=== PATIENT | male | born 1985 | race Caucasian/White ===

== ENCOUNTER 2016-06-30 11:10 | Day surgery (SDC) | payer OTHER ==
[~2016-06-30] VITALS: Ht 172.7 cm; Wt 113.0 kg
[~2016-06-30 11:10] MED LIST: PANT20T PO; Sodium Chloride LOK Flush 10 mL Syringe IV PRN; fentaNYL-PF 50 mCg/mL 2 mL Inj IVPUSH PRN
[2016-06-30 11:35] VITALS: BP 124/56; PULSE 79; RESP 15; O2SAT 97
[2016-06-30 12:28] VITALS: BP 121/75; PULSE 83; RESP 14; O2SAT 94
[2016-06-30] MEDS: 0.9% Sodium Chloride 1,000 ML IV SCH ×2 (12:30→12:32)
[2016-06-30 12:39] VITALS: BP 119/77; PULSE 87; RESP 16; O2SAT 96
--- NOTE | 2016-06-30 13:57 | ENDO ---
[address] [address] ENDOSCOPY PROCEDURE PATIENT: ALIDA CHAMPAGNE : 1985 MR#: [id number] ADMIT: 06/30/2016 JOB ID: [id number] DATE: 06/30/2016 PRIMARY CARE PHYSICIAN: Nabil Darby M.D. PROCEDURE: Upper endoscopy with biopsy. INDICATIONS: The patient is a 30-year-old man who recently had abdominal pain relieved with antacid use. Workup demonstrated cholelithiasis but it seems more likely this is due to peptic ulcer disease. He had not previously undergone upper endoscopy. EQUIPMENT: GIF H 180 J. SEDATION: 1. Versed 6 mg. 2. Fentanyl 100 mcg. COMPLICATIONS: None identified. PROCEDURAL INFORMATION: The patient was brought into the endoscopy suite and placed in the left lateral decubitus position. Sedation was achieved using the above-stated medications with the addition of oxygen administered by nasal cannula. The endoscope was inserted under direct visualization through the mouth down into the oropharynx, esophagus and down into the stomach and duodenum. In the stomach he is noted to have punctate erythema in the antrum. Biopsies and cold forceps were taken. Retroflexed views were obtained in the stomach. He had a grade 3 flap valve. The scope was then slowly withdrawn. GE junction was at 40 cm. It was irregular with a single tongue of salmon-colored mucosa protruding to the esophagus. This was biopsied again with cold forceps. The scope was then slowly withdrawn. The case concluded. 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 RECOMMENDATIONS: 1. Await histopathology. 2. Continue PPI as prescribed.
--- NOTE | 2016-07-07 12:49 | PATH ---
SURGICAL PATHOLOGY Attending Physician:Vicente Hill MD CASE STATUS: Signed Out PATIENT NAME: ALIDA CHAMPAGNE PID: [id number] : 1985 DATE COLLECTED:06/30/2016 20:12 SPECIMEN: 1: Stomach, Antrum, Biopsy 2: Esophagus, Biopsy CLINICAL HISTORY: 1). ANTRUM BIOPSY (RULE OUT H.PYLORI) 2). GASTRO-ESOPHAGEAL JUNCTION BIOPSY FINAL DIAGNOSIS: 1. Antrum, Biopsy: Gastric antral-type mucosa with mild chronic active gastritis. Negative for H. pylori organisms by H&E stain. Negative for intestinal metaplasia. Negative for dysplasia and malignancy. 2. Gastroesophageal Junction, Biopsy: Squamous mucosa with no diagnostic abnormality. No increased inflammatory cells identified. Negative for dysplasia and malignancy. No columnar epithelium identified for evaluation. ICD10: K21.0 GROSS DESCRIPTION: The specimen is received in two formalin filled containers labeled with the patient's name. 1). The specimen is sublabeled "antrum" and consists of 2 portions of tissue which aggregate to 2.5 x 0.3 x 0.2 CM. The specimen is entirely submitted in cassettes 1A. 2). The specimen is sublabeled "GEJ" and consists of a 0.2 x 0.2 x 0.2 CM portion of tissue which is entirely submitted in cassette 2A. 06/30/2016 [facility] ICD-9 CODES: CPT CODES: 1: 90328 2: 44917 Electronically Signed Out Nalini Avila MD [facility], [place] [address] Technical component performed at [facility], [address] [place] [address] [address], [place], [address]
== END 2016-06-30 23:59 | disposition home or self-care (01) ==
LOC: END 11:10
PROVIDERS: ATTEND General Practice
DX: K29.50 Unspecified chronic gastritis without bleeding (principal)
CPT/HCPCS: 43239; G0500; J7030